=== PATIENT | female | born 1965 | race Caucasian/White ===

== ENCOUNTER 2018-10-30 11:54 | Inpatient (IN) | payer OTHER ==
[~2018-10-30] VITALS: Ht 170.2 cm; Wt 63.3 kg
[2018-10-30] MEDS ORDERED: FAMOTIDINE 20 MG/2 ML ONE (12:27)
[2018-10-30] MEDS ORDERED: ONDANSETRON 2MG/ML, 2ML ONE ×2 (12:27→16:01)
[2018-10-30] MEDS ORDERED: ONDANSETRON 2MG/ML, 2ML IVPush ONE (12:30)
[2018-10-30] MEDS ORDERED: SODIUM CHLORIDE FLUSH 10ML SYR IVF ONE (12:30)
[2018-10-30] MEDS ORDERED: PLEASE ENTER ALLERGIES MC SCH (12:30)
[2018-10-30] MEDS ORDERED: FAMOTIDINE 20 MG/2 ML IVP ONE (12:30)
[2018-10-30 12:41] LABS: BASOPHILS # (AUTO) 0.01 x10^3/uL (0-0.1); BASOPHILS % (AUTO) 0 % (0-1); EOSINOPHILS # (AUTO) 0.03 x10^3/uL (0-0.4); EOSINOPHILS % (AUTO) 0 % (1-7); LYMPHOCYTES # (AUTO) 1.14 x10^3/uL (1-3.4); LYMPHOCYTES % (AUTO) 9 % (22-44); MD NO; MEAN CORPUSCULAR HEMOGLOBIN 33.1 pg (27.0-34.8); MEAN CORPUSCULAR HGB CONC 34.5 g/dL (32.4-35.8); MEAN CORPUSCULAR VOLUME 95.9 fL (80-100); MEAN PLATELET VOLUME 8.6 fL (7.4-10.4); MONOCYTES # (AUTO) 0.25 x10^3/uL (0.2-0.8); MONOCYTES % (AUTO) 2 % (2-9); NEUTROPHILS # (AUTO) 11.77 x10^3/uL (1.8-6.8); NEUTROPHILS % (AUTO) 89 % (42-75); PLATELET COUNT 237 x10^3/uL (130-400); RED BLOOD COUNT 4.87 x10^6/uL (3.82-5.3); RED CELL DISTRIBUTION WIDTH 12.8 % (9.6-15.2)
--- NOTE | 2018-10-30 12:41 | NUR ---
PT TO RADIOLOGY
[2018-10-30 12:50] LABS: ALANINE AMINOTRANSFERASE 96 U/L (12-78); ALBUMIN 3.9 g/dL (3.4-5.0); ANION GAP 9 mmol/L (5-15); CALCIUM 8.9 mg/dL (8.5-10.1); CHLORIDE 111 mmol/L (98-107); CREATININE 0.65 mg/dL (0.55-1.02)
[2018-10-30 12:51] LABS: ALKALINE PHOSPHATASE 95 U/L (45-117); BILIRUBIN,TOTAL 1.2 mg/dL (0.2-1.0); TOTAL PROTEIN 8.1 g/dL (6.4-8.2)
[2018-10-30] MEDS ORDERED: SODIUM CHLORIDE 0.9% 1,000ML IVBOLUS ONE (13:00)
[2018-10-30] MEDS ORDERED: MORPHINE SULFATE 4 MG/ML, 1ML ONE (13:27)
[2018-10-30] MEDS ORDERED: MORPHINE SULFATE 4 MG/ML, 1ML IVPush PRN (13:30)
--- NOTE | 2018-10-30 13:33 | NUR ---
PT RETURN FROM CT, MOVING AROUND ON GURNEY, "IT HURTS SO BAD" PT MEDICATED ORDERED. IV INFUSING WITHOUT REDNESS/SWELLING. PT CONT SB PER MONITOR. FAMILY AT BEDSIDE.
[2018-10-30 13:52] LABS: TROPONIN I 0.022 ng/mL (0.000-0.045)
[2018-10-30] MEDS ORDERED: OMNIPAQUE 350 MG/ML, 100ML BOTTLE ONE (13:54)
--- NOTE | 2018-10-30 13:55 | NUR ---
PT RETURN FROM CT (TRANSPORT WITH TECH AND RN ON MONITOR) DURING CONTRAST ADMIN, HR INCRESED TO 70'S SR. PT WITH PAIN DECREASED TO 5/10.
--- NOTE | 2018-10-30 13:58 | NUR ---
DR ZARATE NOTIFIED OF INCREASE IN HR.
--- NOTE | 2018-10-30 14:00 | NUR ---
PT MOVED TO ED ROOM 26 PER LATOYA
--- NOTE | 2018-10-30 14:13 | NUR ---
PT CHART REVIEWED.
--- NOTE | 2018-10-30 14:16 | NUR ---
DR ZARATE BS TO DISCUSS POC. PT A&OX4, RESP EVEN & UNLABORED, SPEECH CLEAR, SKIN PALE/WARM/DRY. CARDIAC & VS MONITORING CONTINUES: SINUS LUZ. LAST ORAL INTAKE: LAST NOC 2299. LAST BM: YESTERDAY. IV 20G LT HAND. PT'S TWO SONS IN ROOM. SIDE RAILS UP X2, CALL LIGHT W/IN REACH.
--- NOTE | 2018-10-30 14:24 | NUR ---
DR ZARATE NOTIFIED OF PT'S FLUCTUATING HR. VO: NS AT 250ML/HR.
[2018-10-30] MEDS ORDERED: SODIUM CHLORIDE 0.9% 1,000 ML IV ONE (14:30)
--- NOTE | 2018-10-30 14:59 | NUR ---
[facility]OPER CALLED FOR PT REPORT; REPORT GIVEN. OR TECH WILL ARRIVE SOON TO GET PT Addendum: 10/30/18 at 1528 by JOSELO GRANITE WORKER STATED THEY CAN START ANTIBIOTIC IN THEIR DEPT.
[2018-10-30] MEDS ORDERED: CEFOTETAN PMX 1GM/50ML 50 ML IV ONE (15:00)
[2018-10-30] MEDS ORDERED: CEFOTETAN 2 GM ONE (15:01)
--- NOTE | 2018-10-30 15:03 | NUR ---
PT REPORTS SHE'S RH NEG; WILL NOTIFY OR TECH.
[2018-10-30] MEDS ORDERED: FENTANYL PF 250 MCG/5ML ONE (15:22)
[2018-10-30] MEDS ORDERED: MIDAZOLAM 1 MG/ML, 2ML ONE (15:22)
--- NOTE | 2018-10-30 15:25 | NUR ---
SURGEON & OR TECHS AT BS.
--- NOTE | 2018-10-30 15:28 | NUR ---
PT TO OR PER LATOYA W/ SURGEON & OR TECHS.
[2018-10-30] MEDS ORDERED: ENALAPRILAT 1.25 MG/ML, 2ML IVPush PRN (15:30)
[2018-10-30] MEDS ORDERED: morphine SULFATE 10 MG/ML, 1ML IVPush PRN (15:30)
[2018-10-30] MEDS ORDERED: POLYETHYLENE GLYCOL 17 GM PACKET PO PRN (15:30)
[2018-10-30] MEDS ORDERED: ONDANSETRON 2MG/ML, 2ML IVPush PRN (15:30)
[2018-10-30] MEDS ORDERED: GABAPENTIN 300 MG CAPSULE PO PRN (15:30)
[2018-10-30] MEDS ORDERED: DOCUSATE 100 MG CAPSULE PO PRN (15:30)
[2018-10-30] MEDS ORDERED: BISACODYL 10 MG SUPP PR PRN (15:30)
[2018-10-30] MEDS ORDERED: GLYCOPYRROLATE 0.2MG/1ML, 5ML ONE (16:01)
[2018-10-30] MEDS ORDERED: NEOSTIGMINE 1 MG/ML, 10ML ONE (16:01)
[2018-10-30] MEDS ORDERED: PROPOFOL 10 MG/ML, 20ML ONE (16:01)
[2018-10-30] MEDS ORDERED: SUCCINYLCHOLINE 20 MG/ML, 10ML ONE (16:01)
[2018-10-30] MEDS ORDERED: CEFAZOLIN 1,000 MG ONE (16:01)
[2018-10-30] MEDS ORDERED: ROCURONIUM 10MG/ML,5ML ONE (16:01)
[2018-10-30] MEDS ORDERED: SUGAMMADEX 200 MG/2 ML IVPush ONE (16:04)
[2018-10-30] MEDS ORDERED: FENTANYL PF 100 MCG/2ML ONE (16:21)
[2018-10-30] MEDS ORDERED: HYDROmorphone 1 MG/ML, 1ML ONE (16:21)
[2018-10-30] MEDS: MEROPENEM 500 MG in SODIUM CHLORIDE 0.9% 100 ML IV SCH (18:13)
[2018-10-30] MEDS: NS + 20MEQ KCL 1,000 ML IV SCH (18:13)
[2018-10-30] MEDS ORDERED: morphine SULFATE 10 MG/ML, 1ML IV PRN (19:00)
[2018-10-30 19:43] VITALS: BP 114/70
[2018-10-30] MEDS: LACTATED RINGERS 1,000 ML IV SCH (20:38)
[2018-10-30] MEDS: KETOROLAC 30 MG/1 ML IV SCH (20:38)
[2018-10-30 22:53] LABS: MICROSCOPIC AUTO
[2018-10-30 22:55] LABS: CULTURE INDICATED? NO
[2018-10-31] MEDS: MEROPENEM 500 MG in SODIUM CHLORIDE 0.9% 100 ML IV SCH ×3 (01:34→18:11)
[2018-10-31] MEDS: NS + 20MEQ KCL 1,000 ML IV SCH ×2 (01:34→09:12)
[2018-10-31] MEDS: KETOROLAC 30 MG/1 ML IV SCH ×4 (01:34→20:00)
[2018-10-31 02:16] VITALS: BP 111/66
[2018-10-31] MEDS: LACTATED RINGERS 1,000 ML IV SCH (03:14)
[2018-10-31 06:09] LABS: ALANINE AMINOTRANSFERASE 72 U/L (12-78); ALBUMIN 2.8 g/dL (3.4-5.0); ANION GAP 7 mmol/L (5-15); CALCIUM 8.1 mg/dL (8.5-10.1); CHLORIDE 114 mmol/L (98-107); CREATININE 0.56 mg/dL (0.55-1.02)
[2018-10-31 06:11] LABS: ALKALINE PHOSPHATASE 73 U/L (45-117); BILIRUBIN,TOTAL 0.9 mg/dL (0.2-1.0); TOTAL PROTEIN 5.8 g/dL (6.4-8.2)
[2018-10-31 06:20] LABS: BASOPHILS % (AUTO) 0 % (0-1); EOSINOPHILS % (AUTO) 0 % (1-7); LYMPHOCYTES # (AUTO) 0.83 x10^3/uL (1-3.4); LYMPHOCYTES % (AUTO) 8 % (22-44); MD NO; MEAN CORPUSCULAR VOLUME 96.9 fL (80-100); MEAN PLATELET VOLUME 8.9 fL (7.4-10.4); MONOCYTES # (AUTO) 0.52 x10^3/uL (0.2-0.8); MONOCYTES % (AUTO) 5 % (2-9); NEUTROPHILS # (AUTO) 8.87 x10^3/uL (1.8-6.8); NEUTROPHILS % (AUTO) 87 % (42-75); PLATELET COUNT 180 x10^3/uL (130-400); RED BLOOD COUNT 3.86 x10^6/uL (3.82-5.3)
[2018-10-31 07:20] VITALS: BP 108/57
[2018-10-31 12:10] VITALS: BP 112/58
[2018-10-31] MEDS: ENOXAPARIN 40 MG/0.4 ML SQ SCH (16:35)
[2018-10-31 19:03] VITALS: BP 122/72
[2018-11-01 00:03] VITALS: BP 113/66
[2018-11-01] MEDS: KETOROLAC 30 MG/1 ML IV SCH ×4 (01:52→21:16)
[2018-11-01] MEDS: MEROPENEM 500 MG in SODIUM CHLORIDE 0.9% 100 ML IV SCH ×3 (01:52→17:53)
[2018-11-01 05:07] LABS: BASOPHILS # (AUTO) 0.02 x10^3/uL (0-0.1); BASOPHILS % (AUTO) 0 % (0-1); EOSINOPHILS # (AUTO) 0.04 x10^3/uL (0-0.4); EOSINOPHILS % (AUTO) 1 % (1-7); LYMPHOCYTES # (AUTO) 1.55 x10^3/uL (1-3.4); LYMPHOCYTES % (AUTO) 26 % (22-44); MD NO; MEAN CORPUSCULAR HEMOGLOBIN 32.4 pg (27.0-34.8); MEAN CORPUSCULAR HGB CONC 33.7 g/dL (32.4-35.8); MEAN CORPUSCULAR VOLUME 96.3 fL (80-100); MEAN PLATELET VOLUME 8.5 fL (7.4-10.4); MONOCYTES # (AUTO) 0.37 x10^3/uL (0.2-0.8); MONOCYTES % (AUTO) 6 % (2-9); NEUTROPHILS # (AUTO) 3.91 x10^3/uL (1.8-6.8); NEUTROPHILS % (AUTO) 66 % (42-75); PLATELET COUNT 145 x10^3/uL (130-400); RED BLOOD COUNT 3.59 x10^6/uL (3.82-5.3); RED CELL DISTRIBUTION WIDTH 13.2 % (9.6-15.2)
[2018-11-01 05:11] LABS: ALANINE AMINOTRANSFERASE 80 U/L (12-78); ALBUMIN 2.7 g/dL (3.4-5.0); ANION GAP 5 mmol/L (5-15); CALCIUM 7.5 mg/dL (8.5-10.1); CHLORIDE 111 mmol/L (98-107)
[2018-11-01 05:13] LABS: ALKALINE PHOSPHATASE 64 U/L (45-117); BILIRUBIN,TOTAL 1.3 mg/dL (0.2-1.0); CREATININE 0.52 mg/dL (0.55-1.02); TOTAL PROTEIN 5.6 g/dL (6.4-8.2)
[2018-11-01 07:26] VITALS: BP 121/60
[2018-11-01] MEDS: ENOXAPARIN 40 MG/0.4 ML SQ SCH (07:54)
[2018-11-01 12:28] VITALS: BP 122/64
[2018-11-01 20:35] VITALS: BP 148/72
[2018-11-02 01:37] VITALS: BP 129/66
[2018-11-02] MEDS: MEROPENEM 500 MG in SODIUM CHLORIDE 0.9% 100 ML IV SCH ×2 (02:02→10:08)
[2018-11-02] MEDS: KETOROLAC 30 MG/1 ML IV SCH ×2 (03:09→09:21)
[2018-11-02 05:51] LABS: BASOPHILS # (AUTO) 0.02 x10^3/uL (0-0.1); BASOPHILS % (AUTO) 0 % (0-1); EOSINOPHILS # (AUTO) 0.16 x10^3/uL (0-0.4); EOSINOPHILS % (AUTO) 3 % (1-7); LYMPHOCYTES % (AUTO) 21 % (22-44); MD NO; MEAN CORPUSCULAR HEMOGLOBIN 32.9 pg (27.0-34.8); MEAN CORPUSCULAR HGB CONC 34.5 g/dL (32.4-35.8); MEAN CORPUSCULAR VOLUME 95.2 fL (80-100); MEAN PLATELET VOLUME 8.7 fL (7.4-10.4); MONOCYTES # (AUTO) 0.44 x10^3/uL (0.2-0.8); MONOCYTES % (AUTO) 7 % (2-9); NEUTROPHILS % (AUTO) 69 % (42-75); PLATELET COUNT 166 x10^3/uL (130-400); RED BLOOD COUNT 3.87 x10^6/uL (3.82-5.3); RED CELL DISTRIBUTION WIDTH 12.8 % (9.6-15.2)
[2018-11-02 05:54] LABS: ALBUMIN 2.9 g/dL (3.4-5.0); CALCIUM 7.8 mg/dL (8.5-10.1); CHLORIDE 109 mmol/L (98-107)
[2018-11-02 06:08] LABS: ALANINE AMINOTRANSFERASE 87 U/L (12-78); ALKALINE PHOSPHATASE 64 U/L (45-117); ANION GAP 6 mmol/L (5-15); BILIRUBIN,TOTAL 1.4 mg/dL (0.2-1.0); TOTAL PROTEIN 6.3 g/dL (6.4-8.2)
[2018-11-02 07:16] VITALS: BP 117/70
[2018-11-02] MEDS: ENOXAPARIN 40 MG/0.4 ML SQ SCH (09:21)
[2018-11-02] MEDS ORDERED: TRAM50TA2 PO ×2 (09:40→10:29)
== END 2018-11-02 12:15 | disposition home or self-care (01) | DRG 329 ==
LOC: ED 14:50 → EDIP 14:55 → 4WST 17:30 → DCLOUNGE 11-02 11:55
PROVIDERS: ADMIT Surgery; ATTEND Surgery
PROC: 3E0T3BZ Introduction of Anesthetic Agent into Peripheral Nerves and Plexi, Percutaneous Approach (ICD-10-PCS; 2018-10-30)
PROC: 0DB80ZZ Excision of Small Intestine, Open Approach (ICD-10-PCS; principal; 2018-10-30 15:30)
DX: K55.9 Vascular disorder of intestine, unspecified (principal); K56.2 Volvulus; K65.0 Generalized (acute) peritonitis; F17.210 Nicotine dependence, cigarettes, uncomplicated; K46.9 Unspecified abdominal hernia without obstruction or gangrene; K66.0 Peritoneal adhesions (postprocedural) (postinfection); Z80.3 Family history of malignant neoplasm of breast
CPT/HCPCS: 36415; 74021; 99285; J3490; 74177; 76700; 80053; 81001; 83605; 83690; 84443; 84484; 85025; 88307; 93005; 93306; 96361; 96374; G0378; J0690; J1650; J1885; J2185; J2250; J2405; J2704; J2710; J3010; J3480; Q9967; C1765; J0330; J2270; J7030; J7120